=== PATIENT | female | born 1975 | race Caucasian/White ===

== ENCOUNTER 2017-06-17 18:52 | Emergency (ER) | payer MEDICAID | END 2017-06-17 21:54 | disposition home or self-care (01) | LOC: E/R 21:54 | DX: S90.111A Contusion of right great toe without damage to nail, initial encounter (principal); W21.02XA Struck by soccer ball, initial encounter; Y92.322 Soccer field as the place of occurrence of the external cause | CPT/HCPCS: 73630; 99283-25 ==

== ENCOUNTER 2017-11-25 19:30 | Emergency (ER) | payer SELFPAY, MEDICAID | END 2017-11-25 19:42 | disposition left against medical advice (07) | LOC: E/R 19:30 | DX: Z53.21 Procedure and treatment not carried out due to patient leaving prior to being seen by health care provider (principal) ==

== ENCOUNTER 2017-11-26 05:30 | Emergency (ER) | payer OTHER, MEDICAID ==
[2017-11-26] MEDS: SOD CHLORIDE 0.9% 1,000 ML IV (06:33)
[2017-11-26] MEDS: KETOROLAC 30 MG INJ IV (06:39)
[2017-11-26] MEDS: ONDANSETRON 4 MG INJ IV (06:39)
[2017-11-26 06:51] LABS: ADD UMIC NO; UR ASCORBIC ACID NEGATIVE (NEGATIVE); UR BILIRUBIN (Dip) NEGATIVE (NEGATIVE); UR BLOOD (Dip) NEGATIVE (NEGATIVE); UR CLARITY CLEAR (CLEAR); UR COLOR YELLOW (YELLOW); UR GLUCOSE (Dip) NEGATIVE (NEGATIVE); UR KETONES (Dip) NEGATIVE (NEGATIVE); UR LEUKOCYTE ESTERASE (Dip) NEGATIVE Leu/ul (NEGATIVE); UR NITRITE (Dip) NEGATIVE (NEGATIVE); UR SPECIFIC GRAVITY (Dip) 1.014 (1.003-1.030); UR TOTAL PROTEIN (Dip) NEGATIVE (NEGATIVE); UR UROBILINOGEN (Dip) NEGATIVE (NEGATIVE)
== END 2017-11-26 07:40 | disposition home or self-care (01) ==
LOC: FTE 05:30
DX: R51 Headache (principal)
CPT/HCPCS: 81003; 81025; 96360; 96372; 99284-25

== ENCOUNTER 2018-07-08 05:31 | Inpatient (IN) | payer OTHER ==
[2018-07-08] MEDS: ACETAMINOPHEN 500 MG TAB PO (06:13)
[2018-07-08] MEDS ORDERED: MIDAZOLAM 1 MG/ML 2 ML INJ (07:26)
[2018-07-08] MEDS ORDERED: FENTAnyl 50 MCG/ML VIAL ×2 (07:26→09:37)
[2018-07-08] MEDS ORDERED: DIPHENHYDRAMINE 50 MG INJ IV (07:30)
[2018-07-08] MEDS ORDERED: LABETALOL HCL 20MG INJ IV (07:30)
[2018-07-08] MEDS ORDERED: morphine (1 MG/ML) 10ML SYRINGE IV ×2 (07:30)
[2018-07-08] MEDS ORDERED: HYDROmorphONE 1 MG/5 ML IV SYRINGE IV ×2 (07:30)
[2018-07-08] MEDS ORDERED: OXYCODONE/ACETAMINOPHEN (5/325) TAB PO ×3 (07:30→18:30)
[2018-07-08] MEDS ORDERED: ALBUTEROL 0.083% (NEB) 2.5 MG/3 ML AMP HHN (07:30)
[2018-07-08] MEDS ORDERED: FENTAnyl 50 MCG/ML VIAL IV (07:30)
[2018-07-08] MEDS ORDERED: ONDANSETRON 4 MG INJ (07:42)
[2018-07-08] MEDS ORDERED: PROPOFOL 40 ML (07:42)
[2018-07-08] MEDS ORDERED: FAMOTIDINE 20 MG INJ (07:43)
[2018-07-08] MEDS ORDERED: DEXAMETHASONE 4 MG/ML 5 ML INJ (07:43)
[2018-07-08] MEDS ORDERED: LIDOCAINE 2% (SDV) 5 ML INJ (07:43)
[2018-07-08] MEDS ORDERED: MAGNESIUM SULFATE 1 GM/D5W 100 ML (07:43)
[2018-07-08] MEDS ORDERED: CEFAZOLIN 1 GM INJ (07:43)
[2018-07-08] MEDS ORDERED: DESFLURANE 15 MIN (08:00)
[2018-07-08] MEDS ORDERED: KETAMINE (50 MG/ML) 10 ML VIAL (08:02)
[2018-07-08] MEDS ORDERED: PHENYLephrine (100 MCG/ML) 10ML SYG (08:32)
[2018-07-08] MEDS ORDERED: EPHEDrine 25 MG/5 ML SYG (08:32)
[2018-07-08] MEDS ORDERED: ROCURONIUM 50 MG INJ (08:45)
[2018-07-08] MEDS ORDERED: SUGAMMADEX SODIUM 200 MG/2 ML VIAL IV (08:48)
[2018-07-08] MEDS ORDERED: ROPIVACAINE 0.5 % 30 ML VIAL (09:46)
[2018-07-08] MEDS: FENTAnyl 50 MCG/ML VIAL IV (10:37)
[2018-07-08] MEDS: HYDROmorphONE 1 MG/5 ML IV SYRINGE IV (10:38)
[2018-07-08] MEDS: MEPERIDINE 25 MG INJ IV (10:38)
[2018-07-08] MEDS: ONDANSETRON 4 MG INJ IV ×2 (10:38→18:46)
[2018-07-08] MEDS: HYDROmorphONE 0.2 MG/ML PCA IV (11:06)
[2018-07-08] MEDS: LACTATED RINGER'S 1,000 ML IV ×3 (12:00→22:40)
[2018-07-08] MEDS ORDERED: HYDROCODONE/APAP (5/325) TAB NGT (12:00)
[2018-07-08] MEDS: IBUPROFEN 600 MG TAB PO ×3 (13:07→23:11)
[2018-07-08] MEDS: CEFAZOLIN 2 GM/50 ML (PMX) 50 ML IVPB ×2 (15:19→22:39)
[2018-07-08] MEDS ORDERED: LACTATED RINGER'S 1,000 ML IV (18:16)
[2018-07-08] MEDS ORDERED: ACETAMINOPHEN 325 MG TAB PO (18:30)
[2018-07-08] MEDS ORDERED: IBUPROFEN 600 MG TAB PO (18:30)
[2018-07-09] MEDS: CEFAZOLIN 2 GM/50 ML (PMX) 50 ML IVPB ×2 (05:17→14:18)
[2018-07-09] MEDS: IBUPROFEN 600 MG TAB PO ×3 (05:18→18:16)
[2018-07-09] MEDS: LACTATED RINGER'S 1,000 ML IV ×3 (05:18→23:19)
[2018-07-09 05:22] LABS: ADD MAN DIFF? NO
[2018-07-09 05:29] LABS: BASOPHILS % 0.1 % (0.0-2.0); EOSINOPHILS % 0.3 % (0.0-7.0); HEMATOCRIT 33.5 % (37.0-47.0); HEMOGLOBIN 11.2 g/dl (12.0-16.0); LYMPHOCYTES # 1.6 10^3/ul (0.8-2.9); LYMPHOCYTES % 17.4 % (15.0-51.0); MEAN CORPUSCULAR HEMOGLOBIN 31.7 pg (29.0-33.0); MEAN CORPUSCULAR HGB CONC 33.4 g/dl (32.0-37.0); MEAN CORPUSCULAR VOLUME 94.9 fl (82.0-101.0); MEAN PLATELET VOLUME 12.3 fl (7.4-10.4); MONOCYTE # 0.7 10^3/ul (0.3-0.9); MONOCYTES % 7.3 % (0.0-11.0); NEUTROPHIL # 6.8 10^3/ul (1.6-7.5); NEUTROPHILS % 74.5 % (39.0-77.0); PLATELET COUNT 155 10^3/UL (140-415); RED BLOOD COUNT 3.53 10^6/ul (4.20-5.40); RED CELL DISTRIBUTION WIDTH 13.2 % (11.5-14.5)
[2018-07-09 05:29] LABS: WHITE BLOOD COUNT 9.2 10^3/ul (4.8-10.8)
[2018-07-09 06:00] LABS: ANION GAP 6 (5-13); BLOOD UREA NITROGEN 6 mg/dl (7-20); CALCIUM 8.7 mg/dl (8.4-10.2); CARBON DIOXIDE 28 mmol/L (21-31); CHLORIDE 107 mmol/L (97-110); CREATININE 0.56 mg/dl (0.44-1.00); Estimated GFR > 60 mL/min (>60); GLUCOSE 102 mg/dl (70-220); POTASSIUM 4.3 mmol/L (3.5-5.1); SODIUM 141 mmol/L (135-144)
[2018-07-09 13:17] LABS: ADD UMIC YES; UR ASCORBIC ACID NEGATIVE (NEGATIVE); UR BILIRUBIN (Dip) NEGATIVE (NEGATIVE); UR BLOOD (Dip) 1+ mg/dL (NEGATIVE); UR CLARITY CLEAR (CLEAR); UR COLOR YELLOW (YELLOW); UR GLUCOSE (Dip) NEGATIVE (NEGATIVE); UR KETONES (Dip) NEGATIVE (NEGATIVE); UR LEUKOCYTE ESTERASE (Dip) NEGATIVE Leu/ul (NEGATIVE); UR NITRITE (Dip) NEGATIVE (NEGATIVE); UR RBC 3 /HPF (0-5); UR SPECIFIC GRAVITY (Dip) 1.012 (1.003-1.030); UR TOTAL PROTEIN (Dip) NEGATIVE (NEGATIVE); UR UROBILINOGEN (Dip) NEGATIVE (NEGATIVE); UR WBC 2 /HPF (0-5)
[2018-07-09] MEDS: HYDROmorphONE 0.2 MG/ML PCA IV (21:09)
[2018-07-10] MEDS: IBUPROFEN 600 MG TAB PO ×4 (00:15→19:02)
[2018-07-10] MEDS: LACTATED RINGER'S 1,000 ML IV ×2 (06:51→16:05)
[2018-07-11] MEDS: IBUPROFEN 600 MG TAB PO ×4 (00:12→18:20)
[2018-07-11] MEDS: LACTATED RINGER'S 1,000 ML IV (04:00)
== END 2018-07-11 20:30 | disposition still patient (30) | DRG 743 ==
LOC: REC 05:31 → MS1 12:35
PROC: 0UT90ZZ Resection of Uterus, Open Approach (ICD-10-PCS; principal; 2018-07-08 07:28)
PROC: 0UB70ZZ Excision of Bilateral Fallopian Tubes, Open Approach (ICD-10-PCS; 2018-07-08 07:28)
PROC: 0USG0ZZ Reposition Vagina, Open Approach (ICD-10-PCS; 2018-07-08 07:28)
DX: D25.9 Leiomyoma of uterus, unspecified (principal); N80.0 Endometriosis of uterus; N92.0 Excessive and frequent menstruation with regular cycle; N94.10 Unspecified dyspareunia
CPT/HCPCS: 80048; 81001; 84703; 85025; 86850; 86900; 86901; 86920; 87086; 88305; 88307